=== PATIENT | female | born 1985 | race Caucasian/White ===

== ENCOUNTER 2017-07-26 15:07 | Emergency (ER) | payer BC ==
[2017-07-26 15:42] VITALS: BP 133/82
--- NOTE | 2017-07-26 15:56 | UC ---
Throat Pain/Nasal Isacc HPI - HPI Summary HPI Summary: Pt c/o nasal congestion that began 7 days ago. Pt now states that sinus pressure has worsend in the last 24 hours to left maxillary and left ear. Pt also c/o of pain with chewing on left side upper molar. - History of Current Complaint Stated Complaint: SINUSES,CONGESTION Time Seen by Provider: 07/26/17 15:34 Hx Obtained From: Patient Hx Last Menstrual Period: unknown, mirena ?: No Onset/Duration: Gradual Onset, Lasting Days, Still Present, Worse Since - onset Severity: Moderate Associated Signs & Symptoms: Positive: Sinus Discomfort - Epiglottits Risk Factors Epiglottis Risk Factors: Negative - Allergies/Home Medications Allergies/Adverse Reactions: Allergies Allergy/AdvReac Type Severity Reaction Status Date / Time Sulfa Drugs Allergy Hives Verified 07/26/17 15:42 PMH/Surg Hx/FS Hx/Imm Hx Previously Healthy: Yes Other History Of: Anticoagulant Therapy - COUMADIN - Surgical History Surgical History: Yes Surgery Procedure, Year, and Place: , 10/22/14, [facility] – [place]. LEFT KNEE SX February, [facility] [place]. LEFT KNEE, 2004, 2003, [facility] [place], WISDOM TEETH EXTRACTION 2005 - Family History Known Family History: Positive: Cardiac Disease - Social History Occupation: Employed Full-time Lives: With Family Alcohol Use: None Substance Use Type: None Smoking Status (MU): Never Smoked Tobacco Have You Smoked in the Last Year: No Review of Systems Constitutional: Fatigue Skin: Negative Eyes: Negative ENT: Dental Pain, Ear Ache - left, Sinus Congestion, Sinus Pain/Tenderness Respiratory: Negative Cardiovascular: Negative Gastrointestinal: Negative Genitourinary: Negative Motor: Negative Neurovascular: Negative Musculoskeletal: Negative Neurological: Negative Psychological: Negative, Anxious Is Patient Immunocompromised?: No All Other Systems Reviewed And Are Negative: Yes Physical Exam Triage Information Reviewed: Yes Appearance: Well-Appearing Vital Signs: Initial Vital Signs Temp 98.3 F 07/26/17 15:30 Pulse 98 07/26/17 15:30 Resp 16 07/26/17 15:30 BP 133/82 07/26/17 15:30 Pulse Ox 100 07/26/17 15:30 Vital Signs Reviewed: Yes Eye Exam: Normal ENT Exam: Other ENT: Positive: TM bulging - left TM, Sinus tenderness Dental Exam: Other Dental: Positive: Percussion Tenderness @ - left upper last molar Neck exam: Normal Respiratory Exam: Normal Cardiovascular Exam: Normal Abdominal Exam: Normal Musculoskeletal Exam: Normal Neurological Exam: Normal Psychological Exam: Normal Skin Exam: Normal Throat Pain/Nasal Course/Dx - Course Course Of Treatment: I discussed with the patient the need to follow up with dental care provider to further evaluat for dental abscess. - Differential Dx/Diagnosis Differential Diagnosis/HQI/PQRI: Sinusitis Provider Diagnoses: sinusitis. detnal abscess? Discharge - Discharge Plan Condition: Stable Disposition: HOME Prescriptions: Amoxicillin PO (*) [Amoxicillin 875 MG (*)] 875 mg PO Q12H #20 tab Pseudoephedrine TAB* [Sudafed TAB*] 60 mg PO Q8H PRN #21 tab PRN Reason: Congestion Patient Education Materials: Dental Abscess (ED), Sinusitis (ED) Referrals: No Primary Care Phys,NOPCP [Primary Care Provider] - If Needed Additional Instructions: Please follow up with your PCP and your dental care provider or return to clinic as needed.
== END 2017-07-26 16:03 | disposition home or self-care (01) ==
LOC: UCCORT 15:07
DX: J32.9 Chronic sinusitis, unspecified (principal)
CPT/HCPCS: 99212; G0463

== ENCOUNTER 2017-11-19 18:22 | Emergency (ER) | payer BC ==
[2017-11-19 20:00] VITALS: BP 145/86
--- NOTE | 2017-11-19 20:21 | UC ---
UC General HPI - HPI Summary HPI Summary: PT IS C/O FEVER TO 102, CHILLS, BODYACHES, SCRATCHY THROAT, COUGH AND FATIGUE PLUS HEADACHE. ONSET TODAY - History of Current Complaint Hx Last Menstrual Period: MIRENA Onset/Duration: Sudden Onset Pain Intensity: 4 Aggravating: NOTHING Alleviating: TYLENOL HELPS Associated Signs & Symptoms: Positive: Cough, Fever, Headache. Negative: Abdominal Pain, Chest Pain, Diarrhea, Dysuria, Nausea, SOB, Vomiting, Wheezing <Felisha Arteaga - Last Filed: 11/19/17 20:22> <Flaca Green - Last Filed: 11/19/17 21:35> - History of Current Complaint Chief Complaint: UCGeneralIllness Stated Complaint: FEVER Time Seen by Provider: 11/19/17 19:56 - Allergy/Home Medications Allergies/Adverse Reactions: Allergies Allergy/AdvReac Type Severity Reaction Status Date / Time Sulfa (Sulfonamide Allergy Hives Verified 11/19/17 19:47 Antibiotics) PMH/Surg Hx/FS Hx/Imm Hx Previously Healthy: Yes Other History Of: Anticoagulant Therapy - COUMADIN - Surgical History Surgical History: Yes Surgery Procedure, Year, and [place] , [place] [facility] [place] [facility] [place], [place] [facility] [place]TRA[place] - Family History Known Family History: Positive: None, Cardiac Disease - Social History Occupation: Employed Full-time Alcohol Use: Rare Substance Use Type: None Smoking Status (MU): Never Smoked Tobacco Have You Smoked in the Last Year: No - Immunization History Vaccination Up to Date: Yes <Felisha Arteaga - Last Filed: 11/19/17 20:22> Review of Systems Constitutional: Fever, Chills, Fatigue Skin: Negative Eyes: Negative ENT: Negative Respiratory: Cough Cardiovascular: Negative Gastrointestinal: Negative Genitourinary: Negative Motor: Negative Neurovascular: Negative Musculoskeletal: Negative Neurological: Headache Psychological: Negative Is Patient Immunocompromised?: No All Other Systems Reviewed And Are Negative: Yes <Felisha Arteaga - Last Filed: 11/19/17 20:22> Physical Exam Triage Information Reviewed: Yes Appearance: Well-Appearing Vital Signs: Initial Vital Signs Temp 98.7 F 11/19/17 19:56 Pulse 112 11/19/17 19:56 Resp 18 11/19/17 19:56 BP 145/86 11/19/17 19:56 Pulse Ox 100 11/19/17 19:56 Eyes: Positive: Conjunctiva Clear ENT: Positive: Pharynx normal, TMs normal. Negative: Nasal congestion, Nasal drainage Neck: Positive: Supple, Nontender, No Lymphadenopathy Respiratory: Positive: Lungs clear, Normal breath sounds Cardiovascular: Positive: RRR, No Murmur, Other: - NOT TACHYCARDIC ON EXAM Abdomen Description: Positive: Nontender, No Organomegaly, Soft. Negative: Distended, Guarding Bowel Sounds: Positive: Present Musculoskeletal: Positive: ROM Intact Neurological: Positive: Alert Psychological: Positive: Age Appropriate Behavior Skin Exam: Normal <Felisha Arteaga - Last Filed: 11/19/17 20:22> Vital Signs: Initial Vital Signs Temp 98.7 F 11/19/17 19:56 Pulse 112 11/19/17 19:56 Resp 18 11/19/17 19:56 BP 145/86 11/19/17 19:56 Pulse Ox 100 11/19/17 19:56 <Flaca Green - Last Filed: 11/19/17 21:35> Course/Dx - Course Course Of Treatment: NON TOXIC, NO CONCERN FOR BACTERIAL INFECTION. C/W [facility], OPTED OUT OF [facility]. PT OF [facility], WILL REFER THERE. - Differential Dx - Multi-Symptom Provider Diagnoses: iNFLUENZA LIKE ILLNESS <Felisha Arteaga - Last Filed: 11/19/17 20:22> Discharge - Sign-Out/Discharge Documenting (check all that apply): Discharge - Billing Disposition and Condition Condition: STABLE Disposition: HOME <Felisha Arteaga - Last Filed: 11/19/17 20:22> - Billing Disposition and Condition Condition: STABLE Disposition: HOME <Flaca Green - Last Filed: 11/19/17 21:35> - Discharge Plan Condition: Stable Disposition: HOME Patient Education Materials: Influenza (DC) Forms: *Work Release Additional Instructions: Follow up with [facility] in 5 - 7 days for a recheck Attestation Statement User Type: Provider - examined by me. -Pradeep <Flaca Green - Last Filed: 11/19/17 21:35>
== END 2017-11-19 20:30 | disposition home or self-care (01) ==
LOC: UCCORT 18:22
DX: J11.1 Influenza due to unidentified influenza virus with other respiratory manifestations (principal); Z88.2 Allergy status to sulfonamides
CPT/HCPCS: 99211; G0463

== ENCOUNTER 2018-08-23 17:14 | Emergency (ER) | payer BC ==
[2018-08-23 18:07] VITALS: BP 134/89
--- NOTE | 2018-08-23 19:38 | UC ---
Throat Pain/Nasal Isacc HPI - HPI Summary HPI Summary: Pt c/o ST that has been intermittent since . Pt states throat feels "swollen". [place] chills yesterday. - History of Current Complaint Chief Complaint: UCGeneralIllness Stated Complaint: ST X 2 WEEKS Time Seen by Provider: 08/23/18 18:09 Hx Obtained From: Patient Hx Last Menstrual Period: MIRENA ?: No Onset/Duration: Sudden Onset, Lasting Weeks, Still Present Severity: Mild Pain Intensity: 3 Pain Scale Used: 0-10 Numeric Cough: None Associated Signs & Symptoms: Positive: Dysphagia - Epiglottits Risk Factors Epiglottis Risk Factors: Negative - Allergies/Home Medications Allergies/Adverse Reactions: Allergies Allergy/AdvReac Type Severity Reaction Status Date / Time Sulfa (Sulfonamide Allergy Hives Verified 08/23/18 18:08 Antibiotics) PMH/Surg Hx/FS Hx/Imm Hx Previously Healthy: Yes Other History Of: Anticoagulant Therapy - COUMADIN - Surgical History Surgical History: Yes Surgery Procedure, Year, and Place: , [place]14, [facility] [place], [facility] [place], [place], [place], [facility] [place] W[place]DOM TEETH EXTRACTION 2005 - Family History Known Family History: Positive: Cardiac Disease - Social History Occupation: Employed Full-time Lives: With Family Alcohol Use: Rare Substance Use Type: None Smoking Status (MU): Never Smoked Tobacco Have You Smoked in the Last Year: No - Immunization History Vaccination Up to Date: Yes Review of Systems All Other Systems Reviewed And Are Negative: Yes Constitutional: Positive: Chills Skin: Positive: Negative Eyes: Positive: Negative ENT: Positive: Sore Throat Respiratory: Positive: Negative Cardiovascular: Positive: Negative Gastrointestinal: Positive: Negative Genitourinary: Positive: Negative Motor: Positive: Negative Neurovascular: Positive: Negative Musculoskeletal: Positive: Negative Neurological: Positive: Negative Psychological: Positive: Negative Is Patient Immunocompromised?: No Physical Exam Triage Information Reviewed: Yes Appearance: Well-Appearing Vital Signs: Initial Vital Signs Temp 98.3 F 08/23/18 18:03 Pulse 95 08/23/18 18:03 Resp 16 08/23/18 18:03 BP 134/89 08/23/18 18:03 Pulse Ox 100 08/23/18 18:03 Vital Signs Reviewed: Yes Eye Exam: Normal ENT: Positive: Pharyngeal erythema, Tonsillar swelling Dental Exam: Normal Neck exam: Normal Respiratory Exam: Normal Cardiovascular Exam: Normal Musculoskeletal Exam: Normal Neurological Exam: Normal Psychological Exam: Normal Skin Exam: Normal Throat Pain/Nasal Course/Dx - Differential Dx/Diagnosis Differential Diagnosis/HQI/PQRI: Pharyngitis, Tonsillitis, URI Provider Diagnosis: Tonsillitis Discharge - Sign-Out/Discharge Documenting (check all that apply): Patient Departure All imaging exams completed and their final reports reviewed: No Studies - Discharge Plan Condition: Stable Disposition: HOME Prescriptions: Amoxicillin PO (*) [Amoxicillin 500 MG CAP*] 500 mg PO Q12H #10 cap predniSONE TAB* [Deltasone 20 MG TAB*] 20 mg PO DAILY #4 tab Patient Education Materials: Tonsillitis (ED) Referrals: [facility] [Outside] No Primary Care Phys,NOPCP [Primary Care Provider] - - Billing Disposition and Condition Condition: STABLE Disposition: Home - Attestation Statements Provider Attestation: I was available for consult. This patient was seen by the MG. The patient was not presented to, seen by, or examined by me. EK
== END 2018-08-23 18:56 | disposition home or self-care (01) ==
LOC: UCCORT 17:14
DX: J03.90 Acute tonsillitis, unspecified (principal); Z88.2 Allergy status to sulfonamides; Z79.01 Long term (current) use of anticoagulants
CPT/HCPCS: 87651; 99212; G0463

== ENCOUNTER 2019-06-28 12:47 | Emergency (ER) | payer BC ==
[2019-06-28 13:44] VITALS: BP 144/82
--- NOTE | 2019-06-28 13:49 | UC ---
Eye Complaint HPI - History of Current Complaint Chief Complaint: UCRespiratory Stated Complaint: SINUS Time Seen by Provider: 06/28/19 13:45 Hx Last Menstrual Period: Mirena IUD Pain Intensity: 2 - Allergies/Home Medications Allergies/Adverse Reactions: Allergies Allergy/AdvReac Type Severity Reaction Status Date / Time Sulfa (Sulfonamide Allergy Hives Verified 06/28/19 13:39 Antibiotics) Home Medications: Home Medications Ascorbic Acid TAB* [Vitamin C TAB*] 500 mg PO DAILY 06/28/19 [History Confirmed 06/28/19] Aspirin 81 mg CHEW TAB* [Aspirin Low Dose TAB*] 81 mg PO DAILY 06/28/19 [ History Confirmed 06/28/19] Biotin 1 mg PO DAILY 06/28/19 [History Confirmed 06/28/19] Levonorgestrel (Iud) [Mirena IUD] 20 mcg IU ONCE 06/28/19 [History Confirmed ] Vitamin THERAPEUTIC TAB* [Theragran TAB*] 1 tab PO DAILY 06/28/19 [History Confirmed 06/28/19] PMH/Surg Hx/FS Hx/Imm Hx Other History Of: Anticoagulant Therapy - COUMADIN - Surgical History Surgical History: Yes Surgery Procedure, Year, and Place: , 10/22/14, [facility] – [place]. LEFT KNEE SX February, [facility] [place]. LEFT KNEE, 2004, 2003, [facility] [place], WISDOM TEETH EXTRACTION 2005 - Family History Known Family History: Positive: Cardiac Disease - Social History Alcohol Use: Rare Substance Use Type: None Smoking Status (MU): Never Smoked Tobacco Have You Smoked in the Last Year: No - Immunization History Vaccination Up to Date: Yes Physical Exam Vital Signs: Initial Vital Signs Temp 98.6 F 06/28/19 13:37 Pulse 86 06/28/19 13:37 Resp 16 06/28/19 13:37 BP 144/82 06/28/19 13:37 Pulse Ox 100 06/28/19 13:37 Discharge ED - Discharge Plan Referrals: No Primary Care Phys,NOPCP [Primary Care Provider] -
--- NOTE | 2019-06-28 14:00 | UC ---
Throat Pain/Nasal Isacc HPI - HPI Summary HPI Summary: Pt presents with c/o nasal congestion , sinus pressure and pain X 2 weeks. Pt has been taking OTC "cold" medications with no improvement of symptoms. - History of Current Complaint Chief Complaint: UCRespiratory Stated Complaint: SINUS Time Seen by Provider: 06/28/19 13:45 Hx Obtained From: Patient Hx Last Menstrual Period: Mirena IUD ?: No Onset/Duration: Gradual Onset, Lasting Weeks, Still Present Severity: Mild Pain Intensity: 2 Pain Scale Used: 0-10 Numeric Cough: Nonproductive Associated Signs & Symptoms: Positive: Sinus Discomfort, Nasal Discharge - Epiglottits Risk Factors Epiglottis Risk Factors: Negative - Allergies/Home Medications Allergies/Adverse Reactions: Allergies Allergy/AdvReac Type Severity Reaction Status Date / Time Sulfa (Sulfonamide Allergy Hives Verified 06/28/19 13:39 Antibiotics) Home Medications: Home Medications Ascorbic Acid TAB* [Vitamin C TAB*] 500 mg PO DAILY 06/28/19 [History Confirmed 06/28/19] Aspirin 81 mg CHEW TAB* 81 mg PO DAILY 06/28/19 [History Confirmed 06/28/19] Biotin 1 mg PO DAILY 06/28/19 [History Confirmed 06/28/19] Levonorgestrel (Iud) [Mirena IUD] 20 mcg IU ONCE 06/28/19 [History Confirmed ] Vitamin THERAPEUTIC TAB* [Theragran TAB*] 1 tab PO DAILY 06/28/19 [History Confirmed 06/28/19] PMH/Surg Hx/FS Hx/Imm Hx Previously Healthy: Yes Other History Of: Anticoagulant Therapy - COUMADIN - Surgical History Surgical History: Yes Surgery Procedure, Year, and Place: , 10/22/14, [facility] [place]. LEFT [place]NEE SX February, [facility] [place]. LEFT [place]NEE, 2004, 2003, [facility] [place], WISDOM TEETH EXTRACTION 2005 - Family History Known Family History: Positive: Cardiac Disease - Social History Occupation: Employed Full-time Lives: With Family Alcohol Use: Rare Substance Use Type: None Smoking Status (MU): Never Smoked Tobacco Have You Smoked in the Last Year: No - Immunization History Vaccination Up to Date: Yes Review of Systems All Other Systems Reviewed And Are Negative: Yes Constitutional: Positive: Fatigue Skin: Positive: Negative Eyes: Positive: Negative ENT: Positive: Nasal Discharge, Sinus Congestion, Sinus Pain/Tenderness Respiratory: Positive: Cough Cardiovascular: Positive: Negative Gastrointestinal: Positive: Negative Genitourinary: Positive: Negative Motor: Positive: Negative Neurovascular: Positive: Negative Musculoskeletal: Positive: Negative Neurological: Positive: Headache Psychological: Positive: Negative Is Patient Immunocompromised?: No Physical Exam Triage Information Reviewed: Yes Appearance: Well-Appearing Vital Signs: Initial Vital Signs Temp 98.6 F 06/28/19 13:37 Pulse 86 06/28/19 13:37 Resp 16 06/28/19 13:37 BP 144/82 06/28/19 13:37 Pulse Ox 100 06/28/19 13:37 Vital Signs Reviewed: Yes Eye Exam: Normal ENT: Positive: Nasal congestion, Sinus tenderness Dental Exam: Normal Neck exam: Normal Respiratory Exam: Normal Cardiovascular Exam: Normal Musculoskeletal Exam: Normal Neurological Exam: Normal Psychological Exam: Normal Skin Exam: Normal Throat Pain/Nasal Course/Dx - Differential Dx/Diagnosis Differential Diagnosis/HQI/PQRI: Otitis Media, Sinusitis, URI Provider Diagnosis: Sinusitis Discharge ED - Sign-Out/Discharge Documenting (check all that apply): Patient Departure All imaging exams completed and their final reports reviewed: No Studies - Discharge Plan Condition: Stable Disposition: HOME Prescriptions: Amoxicillin PO (*) [Amoxicillin 875 MG (*)] 875 mg PO Q12H #12 tab Guaifenesin/Pseudo 600/60(NF) [Mucinex D 600/60 (NF)] 1 tab PO Q12H #10 tab Patient Education Materials: Sinusitis (ED) Referrals: [facility] [place] [facility] REFERRAL [Outside] - If Needed No Primary Care Phys,NOPCP [Primary Care Provider] - - Billing Disposition and Condition Condition: STABLE Disposition: Home
== END 2019-06-28 13:56 | disposition home or self-care (01) ==
LOC: UCCORT 12:47
DX: J32.9 Chronic sinusitis, unspecified (principal); R53.83 Other fatigue; Z88.2 Allergy status to sulfonamides; Z79.82 Long term (current) use of aspirin; Z79.01 Long term (current) use of anticoagulants
CPT/HCPCS: 99212; G0463